=== PATIENT | female | born 1965 | race Caucasian/White ===

== ENCOUNTER → 2020-08-22 | Outpatient (CLI) | payer OTHER ==
[~2020-08-22] MED LIST: CYCLOBENZAPRINE10 MG PO; GLUCOPHAGE1000 MG PO; JANUVIA100 MG PO; NORCO 5-325 TA1 EACH PO; PREDNISONE 50 M50 MG PO
== END ==
LOC: KOH-I 14:47
DX: R19.7 Diarrhea, unspecified (principal); R10.32 Left lower quadrant pain; K76.0 Fatty (change of) liver, not elsewhere classified
CPT/HCPCS: 74176

== ENCOUNTER → 2022-02-21 | Outpatient (CLI) | payer OTHER | LOC: KOH-I 13:14 | DX: R05.9 Cough, unspecified (principal); Z86.16 Personal history of COVID-19 | CPT/HCPCS: 71046 ==